=== PATIENT | female | born 1975 | race Asian ===

== ENCOUNTER → 2016-11-28 | Outpatient (CLI) | payer OTHER, BC | END | disposition home or self-care (01) | LOC: CFH 14:49 | PROVIDERS: ATTEND Obstetrics & Gynecology | DX: Z12.31 Encounter for screening mammogram for malignant neoplasm of breast (principal) | CPT/HCPCS: 77063; G0202 ==

== ENCOUNTER 2017-06-09 14:03 | Emergency (ER) | payer OTHER, BC ==
[~2017-06-09] VITALS: Ht 162.6 cm; Wt 78.0 kg
[2017-06-09 14:31] VITALS: BP 168/96
== END 2017-06-09 14:34 | disposition home or self-care (01) ==
LOC: ED 14:28
DX: G44.209 Tension-type headache, unspecified, not intractable (principal); I10 Essential (primary) hypertension; E78.00 Pure hypercholesterolemia, unspecified; E11.9 Type 2 diabetes mellitus without complications
CPT/HCPCS: 99281

== ENCOUNTER → 2017-07-11 | Outpatient (CLI) | payer OTHER, BC | END | disposition home or self-care (01) | LOC: CFH 13:03 | PROVIDERS: ATTEND Nurse Practitioner Primary Care | DX: R22.31 Localized swelling, mass and lump, right upper limb (principal) ==

== ENCOUNTER 2017-09-04 11:58 | Day surgery (SDC) | payer OTHER, BC ==
[~2017-09-04] VITALS: Ht 162.6 cm; Wt 84.0 kg
[2017-09-04] MEDS ORDERED: LACTATED RINGERS 1,000 ML IV SCH (12:29)
[2017-09-04] MEDS ORDERED: INSU100V8 SQ (12:35)
[2017-09-04] MEDS ORDERED: ASPI-496 PO (12:35)
[2017-09-04] MEDS ORDERED: [UNRECOGNIZED DRUG - OTHER] PO (12:35)
[2017-09-04] MEDS ORDERED: [UNRECOGNIZED DRUG - OTHER] (12:35)
[2017-09-04] MEDS ORDERED: METF850T2 PO (12:35)
[2017-09-04] MEDS ORDERED: LISI5TAB7 PO (12:35)
[2017-09-04 12:44] VITALS: BP 153/93
[2017-09-04 12:45] LABS: HCG UR SG 1.023 (1.003-1.030)
[2017-09-04] MEDS ORDERED: PLEASE ENTER HEIGHT AND WEIGHT MC SCH (13:00)
[2017-09-04 13:07] LABS: ALBUMIN 3.6 g/dL (3.4-5.0); ANION GAP 9 mmol/L (5-15); CALCIUM 8.1 mg/dL (8.5-10.1); CHLORIDE 107 mmol/L (98-107)
[2017-09-04 13:10] LABS: ALANINE AMINOTRANSFERASE 80 U/L (12-78); ALKALINE PHOSPHATASE 106 U/L (45-117); BILIRUBIN,TOTAL 0.9 mg/dL (0.2-1.0); CREATININE 0.67 mg/dL (0.55-1.02); TOTAL PROTEIN 7.6 g/dL (6.4-8.2)
[2017-09-04] MEDS ORDERED: MIDAZOLAM 1 MG/ML, 2ML ONE (14:00)
[2017-09-04] MEDS ORDERED: FENTANYL PF 100 MCG/2ML ONE (14:00)
[2017-09-04] MEDS ORDERED: ACETAMINOPHEN 325 MG TABLET PO PRN (15:00)
[2017-09-04] MEDS ORDERED: MEPERIDINE/PF 25MG/0.5ML IVPush PRN (15:00)
[2017-09-04] MEDS ORDERED: OXYcodone 5 MG/5 ML ORAL.SOL UDC PO PRN (15:00)
[2017-09-04] MEDS ORDERED: FENTANYL PF 100 MCG/2ML IV PRN (15:00)
[2017-09-04] MEDS ORDERED: KETOROLAC 30 MG/1 ML IV PRN (15:00)
[2017-09-04] MEDS ORDERED: PROMETHAZINE 25 MG/ML, 1ML IV PRN (15:00)
[2017-09-04] MEDS ORDERED: ACETAMINOPHEN 650 MG/20.3 ML UDC ONE (15:16)
[2017-09-04] MEDS ORDERED: OXYcodone 5 MG/5 ML ORAL.SOL UDC ONE (15:16)
[2017-09-04] MEDS ORDERED: KETOROLAC 30 MG/1 ML ONE (15:16)
[2017-09-04] MEDS ORDERED: ONDANSETRON 2MG/ML, 2ML ONE (15:45)
[2017-09-04] MEDS ORDERED: PROPOFOL 10 MG/ML, 20ML ONE (15:45)
[2017-09-04] MEDS ORDERED: CEFAZOLIN 1,000 MG ONE (15:45)
== END 2017-09-04 17:20 ==
LOC: OUT 11:58
PROVIDERS: ATTEND Plastic Surgery
DX: D17.1 Benign lipomatous neoplasm of skin and subcutaneous tissue of trunk (principal); E11.9 Type 2 diabetes mellitus without complications; I10 Essential (primary) hypertension; E78.5 Hyperlipidemia, unspecified; Z68.31 Body mass index [BMI] 31.0-31.9, adult; E66.9 Obesity, unspecified; Z88.6 Allergy status to analgesic agent; Z88.0 Allergy status to penicillin; Z88.8 Allergy status to other drugs, medicaments and biological substances; Z79.82 Long term (current) use of aspirin
CPT/HCPCS: 21931; 36415; 80053; 81025; 88305; J0171; J0690; J1885; J2250; J2405; J2704; J3010; J3490; J7120

== ENCOUNTER 2018-05-19 10:02 | Day surgery (SDC) | payer OTHER, BC ==
[2018-05-18 09:20] LABS: MICROSCOPIC NOT IND
[2018-05-18 09:20] LABS: BASOPHILS # (AUTO) 0.04 x10^3/uL (0-0.1); BASOPHILS % (AUTO) 1 % (0-1); EOSINOPHILS # (AUTO) 0.11 x10^3/uL (0-0.4); EOSINOPHILS % (AUTO) 2 % (1-7); LYMPHOCYTES # (AUTO) 2.26 x10^3/uL (1-3.4); LYMPHOCYTES % (AUTO) 30 % (22-44); MD NO; MEAN CORPUSCULAR HEMOGLOBIN 26.1 pg (27.0-34.8); MEAN CORPUSCULAR HGB CONC 32.8 g/dL (32.4-35.8); MEAN CORPUSCULAR VOLUME 79.6 fL (80-100); MEAN PLATELET VOLUME 8.7 fL (7.4-10.4); MONOCYTES # (AUTO) 0.25 x10^3/uL (0.2-0.8); MONOCYTES % (AUTO) 3 % (2-9); NEUTROPHILS # (AUTO) 4.77 x10^3/uL (1.8-6.8); NEUTROPHILS % (AUTO) 64 % (42-75); PLATELET COUNT 383 x10^3/uL (130-400); RED BLOOD COUNT 4.92 x10^6/uL (3.82-5.3); RED CELL DISTRIBUTION WIDTH 14.6 % (9.6-15.2)
[2018-05-18 09:29] LABS: CULTURE INDICATED? NO
[2018-05-18 09:31] LABS: CALCIUM 8.4 mg/dL (8.5-10.1); CHLORIDE 109 mmol/L (98-107)
[2018-05-18 09:35] LABS: ALANINE AMINOTRANSFERASE 38 U/L (12-78); ALBUMIN 3.5 g/dL (3.4-5.0); ANION GAP 7 mmol/L (5-15); BILIRUBIN,TOTAL 0.3 mg/dL (0.2-1.0); CREATININE 0.77 mg/dL (0.55-1.02); TOTAL PROTEIN 7.3 g/dL (6.4-8.2)
[2018-05-18 09:39] LABS: ALKALINE PHOSPHATASE 93 U/L (45-117)
[~2018-05-19] VITALS: Ht 162.6 cm; Wt 81.8 kg
[~2018-05-19 10:02] MED LIST: ASPI-496 PO; ATOR10TA PO; DULA1.5P SQ; FENO145T32 PO; INSU100V8 SQ; LISI5TAB7 PO; METF850T10 PO; [UNRECOGNIZED DRUG - OTHER]; [UNRECOGNIZED DRUG - OTHER] PO
[2018-05-19] MEDS ORDERED: LACTATED RINGERS 1,000 ML IV SCH (10:22)
[2018-05-19 10:31] VITALS: BP 146/94
[2018-05-19] MEDS ORDERED: MIDAZOLAM 1 MG/ML, 2ML ONE (11:05)
[2018-05-19] MEDS ORDERED: FENTANYL PF 250 MCG/5ML ONE (11:05)
[2018-05-19] MEDS ORDERED: DEXAMETHASONE 4 MG/ML, 1ML ONE ×2 (11:06→11:07)
[2018-05-19] MEDS ORDERED: PROPOFOL 10 MG/ML, 20ML ONE (11:06)
[2018-05-19] MEDS ORDERED: ONDANSETRON 2MG/ML, 2ML ONE (11:07)
[2018-05-19] MEDS ORDERED: SILVER NITRATE STICK TP ONE (11:25)
[2018-05-19] MEDS ORDERED: VASOPRESSIN 20 UNIT/ML, 1ML ONE (11:25)
[2018-05-19] MEDS ORDERED: PROMETHAZINE 25 MG SUPP PR PRN (12:00)
[2018-05-19] MEDS ORDERED: PROMETHAZINE 25 MG/ML, 1ML IV PRN (12:00)
[2018-05-19] MEDS ORDERED: PROMETHAZINE 25 MG/ML, 1ML IM PRN ×2 (12:00)
[2018-05-19] MEDS ORDERED: OXYcodone 5 MG/5 ML ORAL.SOL UDC PO PRN (12:00)
[2018-05-19] MEDS ORDERED: LABETALOL 5MG/ML, 20ML IV PRN (12:00)
[2018-05-19] MEDS ORDERED: ONDANSETRON ODT 8 MG PO PRN (12:00)
[2018-05-19] MEDS ORDERED: ONDANSETRON 2MG/ML, 2ML IV PRN (12:00)
[2018-05-19] MEDS ORDERED: PROMETHAZINE 12.5 MG SUPP PR PRN (12:00)
[2018-05-19] MEDS ORDERED: hydrALAzine 20 MG/ML, 1ML IV PRN (12:00)
[2018-05-19] MEDS ORDERED: KETOROLAC 30 MG/1 ML ONE (12:11)
[2018-05-19] MEDS ORDERED: MEPERIDINE/PF 50 MG/ML ONE (13:13)
[2018-05-19] MEDS ORDERED: OXYcodone 5 MG/5 ML ORAL.SOL UDC ONE (13:13)
[2018-05-19] MEDS: FENTANYL PF 100 MCG/2ML IV PRN ×2 (13:18→13:31)
[2018-05-19] MEDS ORDERED: FENTANYL PF 100 MCG/2ML ONE (13:18)
[2018-05-19] MEDS: MEPERIDINE/PF 25MG/0.5ML IVPush PRN ×2 (13:22→13:36)
[2018-05-19] MEDS ORDERED: ONDANSETRON ODT 4 MG ONE (16:15)
[2018-05-19] MEDS ORDERED: ONDANSETRON ODT 4 MG PO ONE (16:30)
== END 2018-05-19 17:50 | disposition home or self-care (01) ==
LOC: OUT 10:02 → MERGE 12:00 → OUT 17:50
PROVIDERS: ATTEND Obstetrics & Gynecology
DX: N92.0 Excessive and frequent menstruation with regular cycle (principal); N94.6 Dysmenorrhea, unspecified; F32.9 Major depressive disorder, single episode, unspecified; E11.9 Type 2 diabetes mellitus without complications; I10 Essential (primary) hypertension; G43.909 Migraine, unspecified, not intractable, without status migrainosus; E03.9 Hypothyroidism, unspecified; Z98.890 Other specified postprocedural states; Z79.82 Long term (current) use of aspirin; Z79.4 Long term (current) use of insulin; Z79.899 Other long term (current) drug therapy; Z88.6 Allergy status to analgesic agent; Z88.0 Allergy status to penicillin; Z88.8 Allergy status to other drugs, medicaments and biological substances
CPT/HCPCS: 36415; 58563; 80053; 81003; 82962; 84702; 85025; 86850; 86900; 93005; J1100; J1885; J2175; J2250; J2405; J2704; J3010; J7120; Q0162

== ENCOUNTER → 2018-08-06 | Outpatient (CLI) | payer OTHER, BC | END | disposition home or self-care (01) | LOC: CFH 12:44 | PROVIDERS: ATTEND Internal Medicine | DX: Z12.31 Encounter for screening mammogram for malignant neoplasm of breast (principal) | CPT/HCPCS: 77067 ==

== ENCOUNTER → 2019-08-09 | Outpatient (CLI) | payer OTHER, BC | END | disposition home or self-care (01) | LOC: CFH 09:11 | PROVIDERS: ATTEND Internal Medicine | DX: Z12.31 Encounter for screening mammogram for malignant neoplasm of breast (principal); Z98.82 Breast implant status | CPT/HCPCS: 77063; 77067 ==

== ENCOUNTER 2020-05-23 11:22 | Emergency (ER) | payer OTHER, BC ==
[~2020-05-23] VITALS: Ht 165.1 cm; Wt 66.0 kg
[2020-05-23 11:40] VITALS: BP 148/93
== END 2020-05-23 12:07 | disposition home or self-care (01) ==
LOC: ED 11:55
DX: Z20.818 Contact with and (suspected) exposure to other bacterial communicable diseases (principal); I10 Essential (primary) hypertension; E11.9 Type 2 diabetes mellitus without complications; E78.00 Pure hypercholesterolemia, unspecified
CPT/HCPCS: 36415; 87635; 99283

== ENCOUNTER → 2020-09-04 | Outpatient (CLI) | payer OTHER, BC ==
[2020-09-04 12:25] LABS: BASOPHILS % (AUTO) 1 % (0-1); EOSINOPHILS % (AUTO) 2 % (1-7); LYMPHOCYTES % (AUTO) 40 % (22-44); MEAN CORPUSCULAR HEMOGLOBIN 29.2 pg (27.0-34.8); MEAN CORPUSCULAR HGB CONC 34.5 g/dL (32.4-35.8); MEAN PLATELET VOLUME 8.6 fL (7.4-10.4); MONOCYTES % (AUTO) 4 % (2-9); NEUTROPHILS % (AUTO) 53 % (42-75); PLATELET COUNT 370 x10^3/uL (130-400); RED BLOOD COUNT 5.27 x10^6/uL (3.82-5.3); RED CELL DISTRIBUTION WIDTH 13.1 % (9.6-15.2)
[2020-09-04 12:35] LABS: ALBUMIN 3.8 g/dL (3.4-5.0); ANION GAP 12 mmol/L (5-15); CALCIUM 8.9 mg/dL (8.5-10.1); CHLORIDE 108 mmol/L (98-107); CHOLESTEROL, TOTAL 240 mg/dL (140-239); CREATININE 0.73 mg/dL (0.55-1.02); MD NO
[2020-09-04 13:09] LABS: ALKALINE PHOSPHATASE 143 U/L (45-117); BILIRUBIN,TOTAL 0.3 mg/dL (0.2-1.0); CHOL/HDL RATIO 11.4; HDL CHOL % 9 % (28-40); HDL CHOLESTEROL (DIRECT) 21 mg/dL (40-60); TOTAL PROTEIN 7.6 g/dL (6.4-8.2); TRIGLYCERIDES 1504 mg/dL (50-200)
[2020-09-04 13:47] LABS: ALANINE AMINOTRANSFERASE 74 U/L (12-78)
== END | disposition home or self-care (01) ==
LOC: LAB 11:58
PROVIDERS: ATTEND Internal Medicine
DX: Z13.220 Encounter for screening for lipoid disorders (principal); Z12.4 Encounter for screening for malignant neoplasm of cervix; Z12.11 Encounter for screening for malignant neoplasm of colon; Z13.89 Encounter for screening for other disorder; Z12.39 Encounter for other screening for malignant neoplasm of breast; E11.9 Type 2 diabetes mellitus without complications; E66.9 Obesity, unspecified; I10 Essential (primary) hypertension; E78.5 Hyperlipidemia, unspecified; K85.00 Idiopathic acute pancreatitis without necrosis or infection; M54.2 Cervicalgia; M53.3 Sacrococcygeal disorders, not elsewhere classified; M25.511 Pain in right shoulder; E55.9 Vitamin D deficiency, unspecified; F90.0 Attention-deficit hyperactivity disorder, predominantly inattentive type; Z68.32 Body mass index [BMI] 32.0-32.9, adult
CPT/HCPCS: 36415; 80053; 80061; 82043; 83036; 84443; 85025

== ENCOUNTER → 2021-04-21 | Outpatient (CLI) | payer OTHER, BC ==
[2021-04-21 08:05] LABS: ALANINE AMINOTRANSFERASE 56 U/L (12-78); ANION GAP 8 mmol/L (5-15); CALCIUM 8.8 mg/dL (8.5-10.1); CHLORIDE 109 mmol/L (98-107); CREATININE 0.75 mg/dL (0.55-1.02)
[2021-04-21 08:15] LABS: ALKALINE PHOSPHATASE 92 U/L (45-117); BILIRUBIN,TOTAL 0.4 mg/dL (0.2-1.0); CHOL/HDL RATIO 6.3; CHOLESTEROL, TOTAL 188 mg/dL (140-239); HDL CHOL % 16 % (28-40); HDL CHOLESTEROL (DIRECT) 30 mg/dL (40-60); LDL CHOLESTEROL,CALCULATED 92 mg/dL (54-169); LDL/HDL RATIO 3.1 (0.5-3.0); TOTAL PROTEIN 7.7 g/dL (6.4-8.2); TRIGLYCERIDES 330 mg/dL (50-200); VLDL CHOLESTEROL 66 mg/dL (0-25)
== END | disposition home or self-care (01) ==
LOC: LAB 07:13
PROVIDERS: ATTEND Internal Medicine
DX: Z12.39 Encounter for other screening for malignant neoplasm of breast (principal); I10 Essential (primary) hypertension; E11.9 Type 2 diabetes mellitus without complications; Z12.11 Encounter for screening for malignant neoplasm of colon; Z12.4 Encounter for screening for malignant neoplasm of cervix; Z13.220 Encounter for screening for lipoid disorders; Z13.89 Encounter for screening for other disorder; E78.5 Hyperlipidemia, unspecified; K85.00 Idiopathic acute pancreatitis without necrosis or infection; M54.2 Cervicalgia; M25.511 Pain in right shoulder; M53.3 Sacrococcygeal disorders, not elsewhere classified; E66.9 Obesity, unspecified; F60.0 Paranoid personality disorder; Z68.32 Body mass index [BMI] 32.0-32.9, adult
CPT/HCPCS: 36415; 80053; 80061; 83036; 84443